=== PATIENT | female | born 1985 | race Caucasian/White ===

== ENCOUNTER 2021-11-30 09:18 | Emergency (ER) | payer OTHER ==
[2021-11-30] MEDS ORDERED: TYLE650T38 PO (09:25)
[2021-11-30] MEDS ORDERED: NAPR-849 PO (09:25)
[2021-11-30 10:18] LABS: BASO % 0.3 % (0.0-1.0); EOS # 0.4 10^3/uL (0.0-0.5); EOS % 3.3 % (0.0-3.0); HEMATOCRIT 37.2 % (36.0-47.0); HEMOGLOBIN 12.3 g/dl (12.0-15.5); LYMPH # 2.4 10^3/uL (1.5-5.0); LYMPH % 20.8 % (24.0-44.0); MEAN CORPUSCULAR HEMOGLOBIN 28.7 pg (27.0-33.0); MEAN CORPUSCULAR HGB CONC 33.1 g/dl (32.0-36.5); MEAN CORPUSCULAR VOLUME 86.7 fl (80.0-96.0); MONO # 1.2 10^3/uL (0.0-0.8); MONO % 10.4 % (2.0-8.0); NEUTROPHILS # 7.6 10^3/uL (1.5-8.5); NEUTROPHILS % 64.9 % (36.0-66.0); PLATELET COUNT, AUTOMATED 337 10^3/uL (150-450); RED BLOOD COUNT 4.29 10^6/uL (4.00-5.40); WHITE BLOOD COUNT 11.7 10^3/uL (4.0-10.0)
[2021-11-30] MEDS ORDERED: ISOVUE-370 76% 100ML VIAL As Ordered ONE (10:38)
[2021-11-30 10:42] LABS: ALBUMIN 3.4 GM/DL (3.2-5.2); ALT/SGPT 44 U/L (12-78); AMYLASE 46 U/L (25-115); BILIRUBIN,DIRECT < 0.1 MG/DL (0.0-0.2); BILIRUBIN,TOTAL 0.3 MG/DL (0.2-1.0); LIPASE 90 U/L (73-393); TOTAL PROTEIN 7.3 GM/DL (6.4-8.2)
[2021-11-30 11:46] LABS: GC DNA AMPLIFICATION NEGATIVE (NEGATIVE)
[2021-11-30] MEDS ORDERED: metroNIDAZOLE (FLAGYL) 500MG TABLET PO ONE (12:15)
[2021-11-30] MEDS ORDERED: DOXYCYCLINE HYCLATE 100MG TABLET PO ONE (12:15)
[2021-11-30] MEDS ORDERED: DOXY100T PO ×2 (12:16→13:28)
[2021-11-30] MEDS ORDERED: METR-265 PO ×2 (12:17→13:28)
[2021-11-30 12:51] VITALS: BP 131/72
[2021-11-30 13:48] LABS: HEPATITIS B SURFACE ANTIBODY POSITIVE (POSITIVE); HEPATITIS B SURFACE ANTIGEN NEGATIVE (NEGATIVE); HEPATITIS C VIRUS ABY INDEX 0.2 INDEX (<0.8); HIV 1&2 SCREEN CENTAUR NEGATIVE (NEGATIVE)
== END 2021-11-30 15:15 | disposition home or self-care (01) ==
LOC: M ED 09:18
DX: R10.9 Unspecified abdominal pain (principal); N76.0 Acute vaginitis; N39.0 Urinary tract infection, site not specified; N83.201 Unspecified ovarian cyst, right side; Z87.891 Personal history of nicotine dependence; Z79.899 Other long term (current) drug therapy
CPT/HCPCS: 36415; 74177; 76830; 76856; 80047; 80076; 81001; 82150; 83690; 84702; 85025; 86706; 86780; 86803; 87210; 87340; 87389; 87810; 87850; 93041; 93976; 99284; Q9967

== ENCOUNTER 2022-08-18 08:00 | Emergency (ER) | payer OTHER ==
[~2022-08-18] VITALS: Ht 167.6 cm; Wt 66.0 kg
[~2022-08-18 08:00] MED LIST: DOXY100T PO; METR-265 PO; NAPR-849 PO; TYLE650T38 PO
[2022-08-18 09:24] LABS: RSV AMPLIFICATION NEGATIVE (NEGATIVE)
[2022-08-18] MEDS ORDERED: PSEU120T19 PO (12:30)
[2022-08-18 12:37] VITALS: BP 142/67
== END 2022-08-18 12:50 | disposition home or self-care (01) ==
LOC: M ED 08:00
DX: U07.1 COVID-19 (principal)

== ENCOUNTER 2022-08-23 18:49 | Emergency (ER) | payer OTHER ==
[~2022-08-23] VITALS: Ht 167.6 cm; Wt 65.9 kg
[~2022-08-23 18:49] MED LIST changes: +PSEU120T19 PO
[2022-08-23] MEDS ORDERED: NS 1,000 ML IV ONE (21:50)
[2022-08-23 22:39] LABS: BASO # 0.1 10^3/uL (0.0-0.2); BASO % 0.5 % (0.0-1.0); EOS # 0.2 10^3/uL (0.0-0.5); EOS % 1.8 % (0.0-3.0); HEMATOCRIT 41.9 % (36.0-47.0); HEMOGLOBIN 13.8 g/dl (12.0-15.5); LYMPH # 2.5 10^3/uL (1.5-5.0); LYMPH % 20.9 % (24.0-44.0); MEAN CORPUSCULAR HEMOGLOBIN 31.4 pg (27.0-33.0); MEAN CORPUSCULAR HGB CONC 32.9 g/dl (32.0-36.5); MEAN CORPUSCULAR VOLUME 95.2 fl (80.0-96.0); MONO # 0.8 10^3/uL (0.0-0.8); MONO % 6.6 % (2.0-8.0); NEUTROPHILS # 8.4 10^3/uL (1.5-8.5); NEUTROPHILS % 69.6 % (36.0-66.0); PLATELET COUNT, AUTOMATED 282 10^3/uL (150-450)
[2022-08-23 23:08] LABS: ALBUMIN 3.7 G/DL (3.2-5.2); ALKALINE PHOSPHATASE 62 U/L (46-116); ALT/SGPT 18 U/L (7.0-40); AST/SGOT 18 U/L (<34); BILIRUBIN,TOTAL 0.3 MG/DL (0.3-1.2); BLOOD UREA NITROGEN 8 MG/DL (9-23); CALCIUM LEVEL 8.8 MG/DL (8.5-10.1); CARBON DIOXIDE LEVEL 26 MMOL/L (20-31); CHLORIDE LEVEL 101 MMOL/L (98-107); CREATININE FOR GFR 0.46 MG/DL (0.55-1.30); GLOMERULAR FILTRATION RATE > 60.0 (>60); GLUCOSE, FASTING 94 MG/DL (60-100); POTASSIUM SERUM 4.1 MMOL/L (3.5-5.1); SODIUM LEVEL 136 MMOL/L (136-145); TOTAL PROTEIN 6.8 G/DL (5.7-8.2)
[2022-08-23] MEDS ORDERED: ONDA4TAB6 PO (23:19)
[2022-08-23 23:39] VITALS: BP 134/61
== END 2022-08-23 23:43 | disposition home or self-care (01) ==
LOC: M ED 18:49
DX: U07.1 COVID-19 (principal); E86.0 Dehydration; R00.1 Bradycardia, unspecified

== ENCOUNTER 2022-10-15 09:43 | Emergency (ER) | payer OTHER ==
[~2022-10-15] VITALS: Ht 185.4 cm; Wt 65.9 kg
[~2022-10-15 09:43] MED LIST changes: +ONDA4TAB6 PO
[2022-10-15 09:48] VITALS: BP 116/75
== END 2022-10-15 10:34 | disposition left against medical advice (07) ==
LOC: M ED 09:43
DX: Z53.21 Procedure and treatment not carried out due to patient leaving prior to being seen by health care provider (principal)

== ENCOUNTER 2022-10-29 18:37 | Emergency (ER) | payer OTHER ==
[~2022-10-29] VITALS: Ht 167.6 cm; Wt 66.7 kg
[2022-10-29 18:38] VITALS: BP 135/80
[2022-10-30 00:13] LABS: GC DNA AMPLIFICATION NEGATIVE (NEGATIVE)
== END 2022-10-29 23:37 | disposition home or self-care (01) ==
LOC: M ED 18:37
DX: N89.8 Other specified noninflammatory disorders of vagina (principal)

== ENCOUNTER 2023-02-16 10:18 | Emergency (ER) | payer OTHER ==
[~2023-02-16] VITALS: Ht 167.6 cm; Wt 68.2 kg
[2023-02-16] MEDS ORDERED: ETON68IM SC (10:26)
[2023-02-16 11:46] LABS: BASO # 0.1 10^3/uL (0.0-0.2); BASO % 0.8 % (0.0-1.0); EOS # 0.4 10^3/uL (0.0-0.5); EOS % 4.7 % (0.0-3.0); HEMATOCRIT 40.2 % (36.0-47.0); HEMOGLOBIN 13.6 g/dl (12.0-15.5); LYMPH # 1.5 10^3/uL (1.5-5.0); LYMPH % 19.7 % (24.0-44.0); MEAN CORPUSCULAR HEMOGLOBIN 32.2 pg (27.0-33.0); MEAN CORPUSCULAR HGB CONC 33.8 g/dl (32.0-36.5); MONO % 13.4 % (2.0-8.0); NEUTROPHILS # 4.5 10^3/uL (1.5-8.5); NEUTROPHILS % 61.1 % (36.0-66.0); PLATELET COUNT, AUTOMATED 269 10^3/uL (150-450); RED BLOOD COUNT 4.23 10^6/uL (4.00-5.40); WHITE BLOOD COUNT 7.4 10^3/uL (4.0-10.0)
[2023-02-16 11:57] LABS: INR 0.9; PROTHROMBIN TIME 12.3 SECONDS (12.5-14.5)
[2023-02-16 11:58] LABS: PARTIAL THROMBOPLASTIN TIME 25.2 SECONDS (24.8-34.2)
[2023-02-16 12:13] LABS: ALBUMIN 4.2 G/DL (3.2-5.2); ALKALINE PHOSPHATASE 44 U/L (46-116); ALT/SGPT 30 U/L (7.0-40); AST/SGOT 40 U/L (<34); BILIRUBIN,DIRECT < 0.1 MG/DL (<0.4); BILIRUBIN,TOTAL 0.4 MG/DL (0.3-1.2); TOTAL PROTEIN 7.1 G/DL (5.7-8.2)
[2023-02-16 12:17] LABS: RSV AMPLIFICATION NEGATIVE (NEGATIVE)
[2023-02-16] MEDS ORDERED: ISOVUE-370 76% 100ML VIAL As Ordered ONE (12:30)
[2023-02-16] MEDS ORDERED: KETOROLAC 30 MG/ML 1ML VIAL IV ONE (13:05)
[2023-02-16] MEDS ORDERED: MAGN400T2 PO (13:39)
[2023-02-16] MEDS ORDERED: PSEU1TAB3 PO (13:39)
[2023-02-16 13:54] VITALS: BP 139/90
== END 2023-02-16 13:53 | disposition home or self-care (01) ==
LOC: M ED 10:18
DX: R51.9 Headache, unspecified (principal); R09.81 Nasal congestion; F17.200 Nicotine dependence, unspecified, uncomplicated
CPT/HCPCS: 70450; 70496; 70498; 80047; 80076; 84702; 85025; 85610; 85730; 87631; 87880; 96374; 99284; J1885; Q9967

== ENCOUNTER → 2024-04-11 | Outpatient (CLI) | payer OTHER ==
[~2024-04-11] MED LIST changes: +ETON68IM SC; +ISOVUE-300 61% 100ML VIAL As Ordered ONE; +LIDOCAINE 1% MDV 20ML VIAL As Ordered ONE; +MAGN400T2 PO; +ONDA-282 PO; -ONDA4TAB6 PO; +PROHANCE 279.3MG/ML 5ML VIAL As Ordered ONE; +PSEU1TAB3 PO
== END ==
LOC: M RAD 09:03
PROVIDERS: ATTEND Physician Assistant
DX: M25.511 Pain in right shoulder (principal)
CPT/HCPCS: 23350; 73223; 77002; A9576; Q9967

== ENCOUNTER 2024-08-09 07:33 | Emergency (ER) | payer OTHER ==
[~2024-08-09 07:33] MED LIST changes: -ISOVUE-300 61% 100ML VIAL As Ordered ONE; -LIDOCAINE 1% MDV 20ML VIAL As Ordered ONE; -PROHANCE 279.3MG/ML 5ML VIAL As Ordered ONE
[2024-08-09] MEDS: PANTOPRAZOLE 40MG VIAL IV ONE (10:33)
[2024-08-09 10:38] LABS: BASO # 0.1 10^3/uL (0.0-0.2); BASO % 0.7 % (0.0-1.0); EOS # 0.2 10^3/uL (0.0-0.5); EOS % 2.4 % (0.0-3.0); HEMATOCRIT 42.8 % (36.0-47.0); HEMOGLOBIN 14.1 g/dl (12.0-15.5); LYMPH # 2.4 10^3/uL (1.5-5.0); LYMPH % 26.9 % (24.0-44.0); MEAN CORPUSCULAR HEMOGLOBIN 31.3 pg (27.0-33.0); MEAN CORPUSCULAR HGB CONC 32.9 g/dl (32.0-36.5); MEAN CORPUSCULAR VOLUME 95.1 fl (80.0-96.0); MONO # 0.7 10^3/uL (0.0-0.8); MONO % 8.3 % (2.0-8.0); NEUTROPHILS # 5.4 10^3/uL (1.5-8.5); NEUTROPHILS % 61.4 % (36.0-66.0); PLATELET COUNT, AUTOMATED 295 10^3/uL (150-450); WHITE BLOOD COUNT 8.8 10^3/uL (4.0-10.0)
[2024-08-09 10:51] LABS: LIPASE 50 U/L (12-53)
[2024-08-09 10:53] LABS: ALKALINE PHOSPHATASE 38 U/L (35-104); ALT/SGPT 18 U/L (7.0-40); AST/SGOT < 8 U/L (<34); BILIRUBIN,DIRECT 0.2 MG/DL (<0.4); BILIRUBIN,TOTAL 0.6 MG/DL (0.3-1.2); CK-MB VALUE MASS < 1.0 NG/ML (<3.6); TOTAL PROTEIN 7.3 G/DL (5.7-8.2)
[2024-08-09 11:03] LABS: CPK CREATINE PHOSPHOKINASE 81 U/L (34-145); MB/CK RELATIVE INDEX 1.23 (< OR =4)
[2024-08-09] MEDS: SUCRALFATE SUSP 1GM/10ML UD PO ONE (11:17)
[2024-08-09] MEDS: METOCLOPRAMIDE INJ 10MG/2ML VIAL IV ONE (12:31)
[2024-08-09] MEDS ORDERED: OMEP10CASR PO (13:42)
[2024-08-09 13:57] VITALS: BP 122/77; TEMP 96.6; O2SAT 97
== END 2024-08-09 14:00 | disposition home or self-care (01) ==
LOC: M ED 07:33
DX: K21.9 Gastro-esophageal reflux disease without esophagitis (principal); R00.1 Bradycardia, unspecified; F17.290 Nicotine dependence, other tobacco product, uncomplicated; F10.10 Alcohol abuse, uncomplicated
CPT/HCPCS: 80047; 80076; 82550; 82553; 83690; 84484; 85025; 93005; 93041; 96374; 96375; 99284; J2470; J2765

== ENCOUNTER 2025-05-27 10:45 | Observation (INO) | payer OTHER ==
[~2025-05-27] VITALS: Ht 165.1 cm; Wt 73.7 kg
[~2025-05-27 10:45] MED LIST changes: +OMEP10CASR PO
[2025-05-27] MEDS ORDERED: IBUP600T42 PO (10:53)
[2025-05-27] MEDS: KETOROLAC 30 MG/ML 1 ML VIAL IV ONE (11:40)
[2025-05-27 11:53] LABS: BASO # 0.1 10^3/uL (0.0-0.2); BASO % 0.6 % (0.0-1.0); EOS # 0.4 10^3/uL (0.0-0.5); EOS % 2.8 % (0.0-3.0); LYMPH # 1.8 10^3/uL (1.5-5.0); LYMPH % 14.4 % (24.0-44.0); MONO # 0.9 10^3/uL (0.0-0.8); MONO % 7.0 % (2.0-8.0); NEUTROPHILS # 9.5 10^3/uL (1.5-8.5); NEUTROPHILS % 74.6 % (36.0-66.0); PLATELET COUNT, AUTOMATED 276 10^3/uL (150-450)
[2025-05-27 12:01] LABS: ERYTHROCYTE SEDIMENTATION RATE 50 mm/hr (0-20)
[2025-05-27 12:22] LABS: C REACTIVE PROTEIN QUANTITATIV 5.73 MG/DL (<1.0)
[2025-05-27 12:23] LABS: CALCIUM LEVEL 9.2 MG/DL (8.5-10.1); CARBON DIOXIDE LEVEL 26 MMOL/L (20-31); CHLORIDE LEVEL 104 MMOL/L (98-107); CREATININE FOR GFR 0.59 MG/DL (0.55-1.30); GLOMERULAR FILTRATION RATE > 90.0 (>60); POTASSIUM SERUM 4.0 MMOL/L (3.5-5.1); SODIUM LEVEL 140 MMOL/L (136-145)
[2025-05-27] MEDS ORDERED: OMEP1CAP71 PO (12:52)
[2025-05-27] MEDS ORDERED: DOXY-441 PO (12:52)
[2025-05-27] MEDS ORDERED: HOME MED LIST COMPLETE! XX SCH (12:55)
[2025-05-27] MEDS: NS (Normal Saline) 0.9% 1,000 ML IV ONE (16:31)
[2025-05-27] MEDS: LIDOCAINE W/EPINEPHrine 1% 20 ML VIAL SC ONE (17:29)
[2025-05-27] MEDS: PIPERACILLIN/TAZOBACTAM SOD 4.5 GM in DEXTROSE 5% (D5W) ADV/MINI-BAG 50 ML IV ONE (17:40)
[2025-05-27] MEDS ORDERED: MOM 30 ML SUSPENSION UDC PO PRN (17:55)
[2025-05-27 18:55] LABS: ANTI-STREPTOLYSIN O QUANT 195.8 IU/ML (<195)
[2025-05-27] MEDS: VANCOMYCIN HCL 1,500 MG, VIAL MATE ADAPTER 1 EACH in NS 500 ML IV ONE (19:06)
[2025-05-27] MEDS: KETOROLAC 30 MG/ML 1 ML VIAL IV PRN (19:20)
[2025-05-27] MEDS: NS (Normal Saline) 0.9% 1,000 ML IV SCH (19:23)
[2025-05-27 21:14] VITALS: BP 133/73; TEMP 99.3; O2SAT 99
[2025-05-28] MEDS: ACETAMINOPHEN 325 MG TAB PO PRN (00:24)
[2025-05-28] MEDS: PIPERACILLIN/TAZOBACTAM SOD 4.5 GM in DEXTROSE 5% (D5W) ADV/MINI-BAG 50 ML IV SCH (01:01)
[2025-05-28] MEDS: PANTOPRAZOLE 40MG TAB PO SCH (01:01)
[2025-05-28 03:49] VITALS: BP 111/68; TEMP 98.9; O2SAT 100
[2025-05-28] MEDS: VANCOMYCIN HCL 1,000 MG, VIAL MATE ADAPTER 1 EACH in NS 250 ML IV SCH (04:27)
[2025-05-28 06:27] LABS: BASO # 0.1 10^3/uL (0.0-0.2); BASO % 0.6 % (0.0-1.0); EOS # 0.7 10^3/uL (0.0-0.5); EOS % 6.6 % (0.0-3.0); LYMPH # 2.2 10^3/uL (1.5-5.0); LYMPH % 21.1 % (24.0-44.0); MONO # 1.0 10^3/uL (0.0-0.8); MONO % 9.3 % (2.0-8.0); NEUTROPHILS # 6.4 10^3/uL (1.5-8.5); NEUTROPHILS % 62.0 % (36.0-66.0); PLATELET COUNT, AUTOMATED 227 10^3/uL (150-450)
[2025-05-28 06:53] LABS: C REACTIVE PROTEIN QUANTITATIV 4.42 MG/DL (<1.0)
[2025-05-28 06:55] LABS: ALT/SGPT 14 U/L (7.0-40); AST/SGOT 11 U/L (<34); CALCIUM LEVEL 8.0 MG/DL (8.5-10.1); CARBON DIOXIDE LEVEL 25 MMOL/L (20-31); CHLORIDE LEVEL 109 MMOL/L (98-107); CREATININE FOR GFR 0.64 MG/DL (0.55-1.30); GLOMERULAR FILTRATION RATE > 90.0 (>60); MAGNESIUM LEVEL 1.8 MG/DL (1.8-2.4); POTASSIUM SERUM 4.2 MMOL/L (3.5-5.1); SODIUM LEVEL 142 MMOL/L (136-145)
[2025-05-28] MEDS ORDERED: PANTOPRAZOLE 40MG TAB PO SCH (09:00)
[2025-05-28] MEDS: ENOXAPARIN 40 MG/0.4 ML SYRINGE (J1650 PER 10MG) SC SCH (09:34)
[2025-05-28 12:00] VITALS: BP 107/65; TEMP 97; O2SAT 96
[2025-05-28 19:48] VITALS: BP 133/76; TEMP 98.1; O2SAT 98
[2025-05-28] MEDS: HYALURONIDASE 15 UNIT/ML 1 ML SYRINGE SC ONE (22:21)
[2025-05-28 23:37] VITALS: TEMP 99.2
[2025-05-29 03:41] VITALS: BP 103/57; TEMP 98.1; O2SAT 99
[2025-05-29 06:56] LABS: BASO # 0.1 10^3/uL (0.0-0.2); BASO % 0.6 % (0.0-1.0); EOS # 0.8 10^3/uL (0.0-0.5); EOS % 10.2 % (0.0-3.0); LYMPH # 2.1 10^3/uL (1.5-5.0); LYMPH % 25.3 % (24.0-44.0); MONO # 0.8 10^3/uL (0.0-0.8); MONO % 9.4 % (2.0-8.0); NEUTROPHILS # 4.4 10^3/uL (1.5-8.5); NEUTROPHILS % 54.1 % (36.0-66.0); PLATELET COUNT, AUTOMATED 237 10^3/uL (150-450)
[2025-05-29 07:44] LABS: ALT/SGPT 16 U/L (7.0-40); AST/SGOT 11 U/L (<34); C REACTIVE PROTEIN QUANTITATIV 2.82 MG/DL (<1.0); CALCIUM LEVEL 8.0 MG/DL (8.5-10.1); CARBON DIOXIDE LEVEL 26 MMOL/L (20-31); CHLORIDE LEVEL 108 MMOL/L (98-107); CREATININE FOR GFR 0.73 MG/DL (0.55-1.30); GLOMERULAR FILTRATION RATE > 90.0 (>60); MAGNESIUM LEVEL 1.8 MG/DL (1.8-2.4); POTASSIUM SERUM 4.2 MMOL/L (3.5-5.1); SODIUM LEVEL 143 MMOL/L (136-145)
[2025-05-29] MEDS ORDERED: DIPH-435 PO (11:11)
[2025-05-29] MEDS ORDERED: DIPHCR TOP (11:11)
[2025-05-29] MEDS ORDERED: CEPH500C PO (11:11)
[2025-05-29] MEDS ORDERED: ACET32TAB PO (11:11)
== END 2025-05-29 14:36 | disposition home or self-care (01) ==
LOC: M ED 10:45 → M ED INP 10:46 → M MSPAV 21:07
PROVIDERS: ADMIT Internal Medicine; ATTEND Internal Medicine
DX: L02.416 Cutaneous abscess of left lower limb (principal); L03.116 Cellulitis of left lower limb; A41.01 Sepsis due to Methicillin susceptible Staphylococcus aureus; D72.829 Elevated white blood cell count, unspecified; R00.0 Tachycardia, unspecified; R03.0 Elevated blood-pressure reading, without diagnosis of hypertension; M79.89 Other specified soft tissue disorders; F17.290 Nicotine dependence, other tobacco product, uncomplicated; Z79.899 Other long term (current) drug therapy
CPT/HCPCS: 10060; 36415; 73590; 73718; 76882; 80048; 80053; 80202; 83605; 83735; 84145; 85025; 85652; 86063; 86140; 87040; 87070; 87077; 87186; 87205; 87641; 96361; 96365; 96366; 96367; 96372; 96375; 96376; 99285; J1650; J1885; J2543; J3373; J3470